=== PATIENT | female | born 1935 | race Caucasian/White ===

== ENCOUNTER 2018-06-15 09:49 | Day surgery (SDC) | payer MEDICARE, BC ==
[2018-06-15] MEDS ORDERED: LIDOCAINE 1% W/EPI 1:200,000 MPF 30ML SQ ONE (09:50)
--- NOTE | 2018-06-21 11:21 | Operative Note ---
DATE OF SURGERY: 06/15/2018 PREOPERATIVE DIAGNOSIS: Stenosing tenosynovitis right middle finger. POSTOPERATIVE DIAGNOSIS: Stenosing tenosynovitis right middle finger. OPERATION: Right middle finger trigger finger release. Staff Surgeon: Richard Garcia MD Anesthesia: Local. Preparation: Chloraprep. Individual Considerations: None. PROCEDURE: The patient was taken to the operating room, placed supine on the operating room table. Her right arm was prepped and draped in the usual fashion. She had 1% lidocaine with epinephrine infiltrated along the A1 alex volarly. Limb was elevated, tourniquet was inflated to 250 mmHg. The patient had an incision directly over the A1 alex volarly. Sharp dissection carried down through the skin. Blunt dissection carried down to the alex. The neurovascular bundles were carefully retracted on either side with retractors. I made a rafi in the alex and then under direct view released it proximally and distally. I then asked her to flex her finger, and she no longer triggered. Tourniquet was let down. Hemostasis was obtained with compression. After irrigation, the skin was approximated with 4-0 nylon in a vertical mattress fashion. A sterile bulky compressive hand dressing was applied. The patient tolerated procedure well. Needle and sponge counts were correct. Estimated blood loss was minimal. The patient was taken back to recovery in good condition. There were no complications. GERRI
== END 2018-06-15 12:20 | disposition home or self-care (01) ==
LOC: SUR 09:49
PROVIDERS: ATTEND Orthopaedic Surgery
DX: M65.841 Other synovitis and tenosynovitis, right hand (principal)